=== PATIENT | female | born 1960 | race Caucasian/White ===

== ENCOUNTER 2020-02-06 00:07 | Outpatient (CLI) | payer OTHER, SELFPAY ==
[2020-02-06 18:38] LABS: SARS-CoV-2 RNA PCR Negative
== END 2020-02-06 00:08 | disposition home or self-care (01) ==
LOC: ANHCOVIDDT 00:07
PROVIDERS: PCP Family Medicine; Visit Provider Internal Medicine Gastroenterology
DX: Z01.812 Encounter for preprocedural laboratory examination (principal); Z20.828 Contact with and (suspected) exposure to other viral communicable diseases
CPT/HCPCS: 87635; C9803; U0003

== ENCOUNTER 2020-02-08 01:19 | Day surgery (SDC) | payer OTHER, SELFPAY ==
[2020-01-31 15:12] VITALS: BMI 41.6
[2020-02-08 06:20] VITALS: BP 131/78; PULSE 69; RESP 18; TEMP 36.6; O2SAT 100
[2020-02-08] MEDS: LACTATED RINGERS 1,000 ML 150 ML IV CONT (06:38)
--- NOTE | 2020-02-08 07:11 | WPDANESEPPF ---
Anes - Initial Pre Proc Eval Procedure: Operation Date: 02/08/20 07:30 Proposed Procedures p Screening Colonoscopy - Wagner Schultz MD Date/Time: 02/08/20 07:11 Surgeon: Wagner Schultz MD Pre Op Diagnosis: neoplasm screening Patient Data Age: 59 Gender: F Height: 5 ft 4 in Weight: 112.7 kg Last Vital Signs Temp 97.9 F 02/08/20 06:20 Pulse 69 02/08/20 06:20 Resp 18 02/08/20 06:20 BP 131/78 02/08/20 06:20 Pulse Ox 100 02/08/20 06:20 Allergies Allergy/AdvReac Type Severity Reaction Status Date / Time lisinopril Allergy Unknown Hives Verified 02/08/20 06:39 oxytetracycline Allergy Unknown Unknown Verified 02/08/20 06:39 Penicillins Allergy Unknown Hives Verified 02/08/20 06:39 OXYTETRACYCLINE HCL Allergy Unknown Hives Uncoded 02/08/20 06:39 Home Medications Medication Instructions Recorded Confirmed Type dextroamphetamine-amphetamine 20 20 mg PO BID 11/22/19 01/31/20 History mg tablet ocrelizumab 30 mg/mL intravenous 30 mg IVPB [id number] ml 11/22/19 01/31/20 History solution pramipexole 0.25 mg tablet 0.25 mg PO QID 11/22/19 01/31/20 History losartan 50 mg-hydrochlorothiazide 1 tablet PO DAILY #30 tablet 01/21/20 01/31/20 Rx 12.5 mg tablet Patient hx anesthesia problems: none Family hx anesthesia problems: none COUNTS INCLUDE 234 BEDS AT THE [facility] Past Medical History Medical History (Updated 02/08/20 @ 07:10 by Christopher Chong MD) Hypertension Multiple sclerosis Social History Social History Smoking status: Never smoker Alcohol intake: current Alcohol use details: 1-2 drinks per month Living arrangements: alone Spiritual care concerns: No Anes - Eval Final PreProcedure Day of Procedure 02/08/20 07:11 Patient weight: morbidly obese Heart: regular rate and rhythm Lungs: clear to auscultation Airway: Mallampati scale class III Neurological: alert and oriented Last oral intake: >/= 8 hours ASA classification: III Emergent: no Anesthetic plan: proceed Anesthesia type and monitoring: general GIVS and standard monitoring Informed Consent: The patient's anesthetic plan and its attendant risks and benefits were discussed with the patient/family/POA. Questions were solicited and answers provided to the satisfaction of the patient/family/POA.
--- NOTE | 2020-02-08 07:25 | PM.HPGS ---
History of Present Illness History of Present Illness Consent: Risks, benefits, and alternatives have been discussed and questions answered. Patient agrees to proceed with procedure. Chief complaint: neoplasm screening Narrative: Aditi Giron is a 59 year old female Here for colon cancer screening Review of Systems Review of Systems: All systems reviewed & are unremarkable except as noted in HPI and below PMFSH Past Medical History Medical History Hypertension Multiple sclerosis Social History Social History Smoking status: Never smoker Alcohol intake: current Alcohol use details: 1-2 drinks per month Living arrangements: alone Spiritual care concerns: No Meds Home Medications and Allergies Home Medications Medication Instructions Recorded Confirmed Type dextroamphetamine-amphetamine 20 20 mg PO BID 11/22/19 01/31/20 History mg tablet ocrelizumab 30 mg/mL intravenous 30 mg IVPB [id number] ml 11/22/19 01/31/20 History solution pramipexole 0.25 mg tablet 0.25 mg PO QID 11/22/19 01/31/20 History losartan 50 mg-hydrochlorothiazide 1 tablet PO DAILY #30 tablet 01/21/20 01/31/20 Rx 12.5 mg tablet Allergies Allergy/AdvReac Type Severity Reaction Status Date / Time lisinopril Allergy Unknown Hives Verified 02/08/20 06:39 oxytetracycline Allergy Unknown Unknown Verified 02/08/20 06:39 Penicillins Allergy Unknown Hives Verified 02/08/20 06:39 OXYTETRACYCLINE HCL Allergy Unknown Hives Uncoded 02/08/20 06:39 Vital Signs Vital Signs - 24 hr 02/08/20 06:20 Temperature 36.6 C Pulse Rate 69 Respiratory Rate 18 Blood Pressure 131/78 Pulse Oximetry 100 Exam Resp: Auscultation: clear to auscultation bilaterally Cardio: Rate: regular rate Rhythm: regular rhythm GI: GI Palp: Yes Soft to palpation and No Tenderness to palpation present (GI) Assessment and Plan Assessment and plan (1) Colon cancer screening: Code(s): Z12.11 - Encounter for screening for malignant neoplasm of colon Status: Acute Assessment and Plan: Colonoscopy with possible biopsy or polypectomy or cautery or injection of substances.
[2020-02-08] MEDS: SIMETHICONE ORAL SUSPENSION 20 MG/0.3 ML 30 ML BOTTLE 0.6 ML IRRIGATION (07:41)
[2020-02-08 07:50] VITALS: BP 137/101; PULSE 82; RESP 18; O2SAT 100
[2020-02-08 08:00] VITALS: BP 96/60; PULSE 92; RESP 18; O2SAT 100
[2020-02-08 08:10] VITALS: BP 103/70; PULSE 83; RESP 23; O2SAT 100
== END 2020-02-08 08:30 | disposition home or self-care (01) ==
PROVIDERS: PCP Family Medicine; Visit Provider Internal Medicine Gastroenterology
PROC: 0DJD8ZZ Inspection of Lower Intestinal Tract, Via Natural or Artificial Opening Endoscopic (ICD-10-PCS; CPT 45378; principal; 2020-02-08 07:30)
DX: Z12.11 Encounter for screening for malignant neoplasm of colon (principal); I10 Essential (primary) hypertension; G35 Multiple sclerosis; E66.01 Morbid (severe) obesity due to excess calories; Z68.41 Body mass index [BMI] 40.0-44.9, adult
CPT/HCPCS: 45378; J2704; J7120

== ENCOUNTER → 2021-02-05 13:11 | Outpatient (CLI) | payer OTHER, SELFPAY ==
--- NOTE | ~2021-02-05 | MM_ITS ---
EXAMINATION: MM screening [facility] BI w [facility] HISTORY: Screening TECHNIQUE: Craniocaudal and mediolateral oblique 3-D tomosynthesis images were obtained and synthetic 2-D images were generated. CAD analysis was submitted and interpreted. COMPARISON: Comparison to multiple prior studies sequentially, with oldest reviewed study dated 08/09. BREAST PARENCHYMAL COMPOSITION: Breast composed of scattered areas of fibroglandular density. FINDINGS: There is no evidence of suspicious mass, calcification, or architectural distortion to sugg est malignancy in either breast. There has been no suspicious interval change. IMPRESSION: 1. No mammographic evidence of malignancy. 2. Recommend routine screening mammography in one year. BI-RADS Category 1: Negative Reviewed, dictated and finalized at location A.
== END ==
PROVIDERS: PCP Family Medicine; Visit Provider Nurse Practitioner
DX: Z12.31 Encounter for screening mammogram for malignant neoplasm of breast (principal)
CPT/HCPCS: 77063; 77067

== ENCOUNTER → 2021-02-11 08:00 | Outpatient (CLI) | payer OTHER, SELFPAY ==
--- NOTE | ~2021-02-11 | MR_ITS ---
EXAMINATION: MR cervical spine wo/w con DATE: 02/11/2021 10:15 INDICATION: Multiple sclerosis. TECHNIQUE: Magnetic resonance imaging (MRI) of the cervical spine was performed without and with 20 m L MultiHance intravenous contrast. Sequences included sagittal and axial T2-weighted FSE, sagittal T2 -weighted FS FSE, and sagittal and axial T1-weighted FSE. Postcontrast sequences included sagittal an d axial T1-weighted FS FSE. COMPARISON: None FINDINGS: There is 6 degrees levocurvature of cervical spine. Vertebral body heights are normal. Ther e is 2 mm anterolisthesis of C7 on T1. There is mildly decreased disc height at C3-C4. There are appr oximately 5 ill-defined lesions of increased T2-weighted signal intensity in the spinal cord. None of the lesions enhance. The following disc levels are specifically discussed: C2-C3: The disc does not extend beyond the endplate margin. There is no uncovertebral joint osteoarth ritis. There is ankylosis of left facet joint with mild hypertrophy. There is no neural foraminal rosario nosis. There is no central canal stenosis. C3-C4: The disc is bulging. There is mild bilateral uncovertebral joint osteoarthritis. There is olu re right and moderate left facet joint osteoarthritis. There is moderate right and mild left neural f oraminal stenosis. There is mild central canal stenosis. C4-C5: The disc is bulging. There is moderate right and mild left uncovertebral joint osteoarthritis. There is severe left facet joint osteoarthritis. There is ankylosis of right facet joint with severe hypertrophy. There is mild bilateral neural foraminal stenosis. There is no central canal stenosis. C5-C6: The disc does not extend beyond the endplate margin. There is mild bilateral uncovertebral jose nt osteoarthritis. There is severe bilateral facet joint osteoarthritis. There is mild bilateral neur al foraminal stenosis. There is no central canal stenosis. C6-C7: The disc does not extend beyond the endplate margin. There is no uncovertebral joint osteoarth ritis. There is moderate and moderate left facet joint osteoarthritis. There is mild left neural fora tavo stenosis. There is no central canal stenosis. C7-T1: The disc does not extend beyond the endplate margin. There is no uncovertebral joint osteoarth ritis. There is moderate right and severe left facet joint osteoarthritis. There is mild bilateral ne ural foraminal stenosis. There is no central canal stenosis. IMPRESSION: 1. Spinal cord lesions, consistent with multiple sclerosis. 2. Mild cervical spondylosis. Reviewed, dictated and finalized at location A.
--- NOTE | ~2021-02-11 | MR_ITS ---
EXAMINATION: MR brain/brain stem wo/w con DATE: 02/11/2021 10:19 INDICATION: Multiple sclerosis. TECHNIQUE: Magnetic resonance imaging (MRI) of the brain and brainstem was performed without and with 20 mL MultiHance intravenous contrast. Sequences included sagittal and axial T1-weighted FLAIR, axia l T1-weighted FSE, axial diffusion-weighted FS EPI, sagittal T2-weighted FLAIR, axial T2*-weighted GR E, axial T2-weighted FLAIR Propeller, and axial T2-weighted Propeller. Postcontrast sequences include d axial, coronal, and sagittal T1-weighted FSE. Apparent diffusion coefficient (ADC) maps were create d. COMPARISON: None. FINDINGS: There are approximately 15 total lesions of increased T2-weighted signal intensity in the b rain. Of these lesions, approximately 4 are periventricular, 3 are juxtacortical, and 2 are infratent orial. None of the lesions enhance. There is no acute ischemic infarct retrograde hemorrhage. The clint tricles are normal in size. The mastoid air cells are normal. There is mild mucosal thickening in the paranasal sinuses. The orbits are normal. IMPRESSION: 1. Mild white matter disease, likely a combination of multiple sclerosis and chronic small vessel isc hemic disease. Reviewed, dictated and finalized at location A. IMPRESSION: 1. Mild white matter disease, likely a combination of multiple sclerosis and ch ronic small vessel ischemic disease.
--- NOTE | ~2021-02-11 | MR_ITS ---
EXAMINATION: MR thoracic spine wo/w con DATE: 02/11/2021 10:12 INDICATION: Multiple sclerosis. TECHNIQUE: Magnetic resonance imaging (MRI) of the thoracic spine was performed without and with 20 m L MultiHance intravenous contrast. Sequences included sagittal and axial T2-weighted FSE, sagittal ST IR FSE, and sagittal and axial T1-weighted FSE. Postcontrast sequences included sagittal and axial T1 -weighted FS FSE. COMPARISON: None FINDINGS: There is 6 degrees levocurvature of thoracolumbar spine. There are Schmorl's nodes of the i nferior endplates of T6-T9. There is moderately decreased disc height at T6-T7 and T7-T8 and mildly d ecreased disc height at T8-T9 and T9-T10. At T6-T7, there is a right central extrusion with mild cent ral canal stenosis. At T7-T8, there is a left central extrusion with mild central canal stenosis. At T8-T9, there is a left central extrusion with mild central canal stenosis. At T9-T10, there is a righ t central protrusion with mild central canal stenosis. There is multilevel facet joint osteoarthritis , moderate in upper thoracic spine. There is mild left neural foraminal stenosis from T3-T4 through T 5-T6. The thoracic spinal cord signal intensity is normal. IMPRESSION: 1. No evidence of multiple sclerosis involving thoracic spinal cord. 2. Moderate thoracic spondylosis. Reviewed, dictated and finalized at location A.
[2021-02-11 08:38] LABS: Estimated Glomerular Filt Rate > 60
== END ==
PROVIDERS: PCP Family Medicine
DX: G35 Multiple sclerosis (principal); Z79.899 Other long term (current) drug therapy; R93.89 Abnormal findings on diagnostic imaging of other specified body structures; E55.9 Vitamin D deficiency, unspecified; R53.82 Chronic fatigue, unspecified; N31.9 Neuromuscular dysfunction of bladder, unspecified; R25.2 Cramp and spasm; M47.814 Spondylosis without myelopathy or radiculopathy, thoracic region; M47.812 Spondylosis without myelopathy or radiculopathy, cervical region; R90.82 White matter disease, unspecified
CPT/HCPCS: 70553; 72156; 72157; A9577

== ENCOUNTER 2021-06-18 04:24 | Inpatient (IN) | payer OTHER, SELFPAY ==
[2021-06-18] VITALS (15 sets, daily range): BP systolic 91–150; BP diastolic 57–108; PULSE 77–128; RESP 15–20; TEMP 35.6–36.9; O2SAT 97–100; BMI 44.1
--- NOTE | 2021-06-18 | ECHO_ITS ---
Patient Info Name: Aditi Giron Age: 60 years : 1960 Gender: Female Ht: 63 in Wt: 248 lbs BSA: 2.30 m2 HR: 98 bpm BP: 123 / 84 mmHg Heart Rhythm: Sinus Rhythm Exam Date: 06/18/2021 3:07 PM Exam Location: [facility] Patient Status: Outpatient Admit Date: 06/18/2021 Staff Ordering Physician: Mac Carey MD Cardiac Technician: Harsha Rogers, LEXI, RT Attending Provider: Rashad Cornelius MD Referring Physician: Aurelio FOSTER; Exam Type: CA echo dop color flow w con Study Info Indications R00.0 - Tachycardia, unspecified Complete two-dimensional, color flow and Doppler transthoracic echocardiogram is performed with contrast to opacify the left ventricle and to improve the deliniation of the left ventricle endocardial borders. Summary 1. Left ventricular chamber dimension is mildly enlarged. 2. Left ventricular systolic function is severely reduced, estimated at 20-25%. 3. There is no increased left ventricular wall thickness. 4. The left ventricular diastolic function is abnormal. 5. There is mild to moderate mitral valve regurgitation. 6. Frequent PACs and occasional PVC noted. Left Ventricle Left ventricular chamber dimension is mildly enlarged. Left ventricular systolic function is severely reduced, estimated at 20-25%. There is no increased left ventricular wall thickness. The left ventricular diastolic function is abnormal. Right Ventricle Right ventricular chamber dimension is normal. Right ventricular systolic function is normal. Left Atria Left atrial chamber dimension is normal. Right Atria Right atrial chamber dimension is normal. Atrial Septum Intact interatrial septum visualized by color flow imaging. Aortic Valve The aortic valve is trileaflet. There is mild aortic valve sclerosis. There is no aortic valve stenosis. There is trace aortic valve regurgitation. Pulmonic Valve The pulmonic valve is normal. There is no pulmonic valve stenosis. There is trace pulmonic regurgitation. Mitral Valve The mitral valve has normal leaflets. There is no mitral valve stenosis. There is mild to moderate mitral valve regurgitation. Tricuspid Valve The tricuspid valve leaflets are normal. There is no significant tricuspid valve stenosis. There is trace tricuspid valve regurgitation. Other Findings Frequent PACs and occasional PVC noted. Pericardium/Pleural The pericardium appears normal. Inferior Vena Cava Normal inferior vena cava with >50% collapse upon inspiration consistent with elevated right atrial pressure, 10 mmHg. Aorta The aortic root size at the sinus of Valsalva is normal. Left Ventricular Outflow Tract Name Value Normal LVOT 2D LVOT Diameter 1.98 cm LVOT Doppler LVOT Peak Gradient 3 mmHg LVOT Mean Gradient 1 mmHg LVOT VTI 14.68 cm LVOT VTI/AV VTI Ratio 0.70 LVOT Stroke Volume 45.39 ml LVOT CO 3.67 l/min LVOT CI 1.60 L/
--- NOTE | ~2021-06-18 | NM_ITS ---
EXAMINATION: NM yesenia stress w perfusion DATE: 06/18/2021 14:07 INDICATION: Chest pain. TECHNIQUE: Rest images were obtained following intravenous administration of 6.95 mCi Tc99m tetrofosm in (Myoview). The patient was infused intravenously with Lexiscan (regadenoson). Then, 22.3 mCi Tc99m tetrofosmin (Myoview) was administered intravenously, and stress images were obtained. The patient c ould not do prone imaging. Data was reconstructed into short axis and horizontal and vertical long ax is SPECT images. Gated SPECT images were also obtained. COMPARISON: Chest CT 06/18/2021. FINDINGS: There is a small, mild, reversible perfusion defect involving mid anterior segment of left ventricle, consistent with ischemia. There is global hypokinesis. Left ventricular ejection fractio n measures 18%. IMPRESSION: 1. Small area of mild ischemia involving mid anterior segment of left ventricle. Breast attenuation a rtifact decreases sensitivity and specificity. 2. Global hypokinesis with left ventricular ejection fraction measuring 18%. Reviewed, dictated and finalized at location A. NICAL BUYER IMPRESSION: 1. Small area of mild ischemia involving mid anterior segment of left ventricle . Breast attenuation artifact decreases sensitivity and specificity. 2. Global hypokinesis with left ventricular ejection fraction measuring 18%.
--- NOTE | ~2021-06-18 | US_ITS ---
EXAMINATION:US venous doppler LE BI INDICATION:Leg edema TECHNIQUE: Multiple grayscale, color flow and Doppler images of the right and left lower extremity de ep venous systems were obtained and reviewed. COMPARISON:09/05/2009 FINDINGS: The common femoral, superficial femoral and popliteal veins demonstrate normal respiratory variation, augmentation and compressibility. Color flow is also seen within the posterior tibial, pe roneal, greater saphenous and profunda veins. IMPRESSION: 1: No lower extremity deep venous thrombosis. Reviewed, dictated and finalized at location B. UM TANK TENDER
--- NOTE | ~2021-06-18 | XR_ITS ---
XR chest 1V portable 06/19/2021 08:48 Indication: CHF. Procedure: AP portable chest Comparison: No prior studies for comparison. Findings: Cardiomegaly. Mild interstitial edema. No pleural effusion or pneumothorax. No acute osseou s abnormality. Impression: 1: Cardiomegaly with mild interstitial edema. Reviewed, dictated and finalized at location B. TENANCE PAINTER APPRENTICE Impression: 1: Cardiomegaly with mild interstitial edema.
--- NOTE | ~2021-06-18 | CT_ITS ---
EXAMINATION: CTA chest PE protocol DATE: 06/18/2021 05:38 INDICATION: Pleuritic chest pain with tachypnea TECHNIQUE: Computed tomography (CT) pulmonary angiogram of the chest was performed with 100 mL Omnipa que-350 intravenous contrast. Additional 3D reconstructions utilizing coronal maximum intensity proje ction (MIP) were performed. Automated exposure control and iterative reconstruction technique were em ployed. The dose-length product was 870.76 mGy-cm. COMPARISON: None FINDINGS: Excellent contrast opacification of the pulmonary arteries. There is mild streak artifact from dense contrast in the superior vena cava and right atrium. Mild scattered respiratory motion artifact does not significantly limit evaluation. No pulmonary nodules. Crazy paving pattern in the lungs with grou ndglass opacities and smooth septal line thickening consistent with mild pulmonary edema. There are f ew scattered bilateral pulmonary nodules, the largest measuring 5 mm in the right lower lobe and the remainder 4 mm or smaller. There are some additional scattered linear discoid atelectasis in the righ t lower lobe. Diffuse bronchial wall thickening. No pleural effusion or pneumothorax. Mild cardiomega ly. No pericardial effusion. Thoracic aorta is normal in caliber with no dissection. No pathologicall y enlarged abdominal or pelvic lymphadenopathy. Cholecystectomy clips the gallbladder fossa. There ar e few calcifications at the periphery of the liver which could represent sequela of old granulomatous disease, dropped gallstones or heterotopic ossification related to a chronic insult. IMPRESSION: 1. No pulmonary embolism. 2. Congestive heart failure with mild cardiomegaly and diffuse mild pulmonary edema. Reviewed, dictated and finalized at location A. MS ANALYST IMPRESSION: 1. No pulmonary embolism. 2. Congestive heart failure with mild cardiomegaly and diffuse mild pulmonary e joe.
--- NOTE | 2021-06-18 04:30 | ECG_ITS ---
Measurements Intervals Brothers Rate: 122 P: DC: 0 QRS: -5 QRSD: 105 T: 65 QT: 357 QTc: 510 Interpretive Statements ATRIAL FLUTTER/TACHYCARDIA WITH RAPID VENTRICULAR RESPONSE CONSIDER INFERIOR INFARCT, AGE INDETERMINATE BORDERLINE T WAVE ABNORMALITY- LAT/HIGH LAT LEADS BASELINE ARTIFACT- II, III, AVF ABNORMAL ECG Electronically Signed On 06-18-2021 5:52:29 RIP MACHINE OPERATOR by Reese Aguilera D.O.
[2021-06-18] MEDS: SODIUM CHLORIDE 0.9% IV 1,000 ML 999 ML IV CONT (04:57)
--- NOTE | 2021-06-18 04:57 | ED.GENADULT ---
HPI - General Adult General Chief complaint: Abdominal Pain <Chad Roy MD - Last Filed: 06/18/21 19:08> Stated complaint: left neck/shoulder/arm/side pain <Chad Roy MD - Last Filed: 06/18/21 19:08> Time Seen by Provider: 06/18/21 04:28 <Chad Roy MD - Last Filed: 06/18/21 19:08> Source: patient <Chad Roy MD - Last Filed: 06/18/21 19:08> History of Present Illness HPI narrative: Patient presents with left-sided pain. Reports she has pain started in her neck radiates down to her chest into her arm. Reports is worse with deep inspiration otherwise no other clear aggravating or alleviating factors. The pain is sharp, constant. Denies any nausea or vomiting denies any recent fevers denies shortness of breath denies any diarrhea or constipation. Denies any urinary symptoms. Denies any recent hospitalizations or prior history of blood clots. <Chad Roy MD - Last Filed: 06/18/21 19:08> Related Data Home medications: Home Medications Medication Instructions Recorded Confirmed dextroamphetamine-amphetamine 20 20 mg PO BID 11/22/19 06/18/21 mg tablet pramipexole 0.25 mg tablet 0.25 mg PO QID 11/22/19 06/18/21 ofatumumab [Kesimpta Pen] 20 mg SUBCUT MONTHLY 06/18/21 06/18/21 tizanidine 2 mg PO Q12-24H PRN 06/18/21 06/18/21 <Chad Roy MD - Last Filed: 06/18/21 19:08> Allergies/adverse reactions: Allergies Allergy/AdvReac Type Severity Reaction Status Date / Time lisinopril Allergy Unknown Hives Verified 06/18/21 04:31 oxytetracycline Allergy Unknown Hives Verified 06/18/21 08:49 Penicillins Allergy Unknown Hives Verified 06/18/21 04:31 <Chad Roy MD - Last Filed: 06/18/21 19:08> Review of Systems Review of Systems: CONSTITUTIONAL: Denies fever, chills, or sweats. EYES: Denies visual changes, redness, or discharge. ENT: Denies rhinorrhea, congestion, sore throat, or otalgia. CARDIOVASCULAR: Denies palpitations, or edema. RESPIRATORY: Denies cough or dyspnea. GASTROINTESTINAL: Denies abdominal pain, nausea, vomiting, or diarrhea. GENITOURINARY: Denies dysuria or hematuria. SKIN: Denies rash or itching. MUSCULOSKELETAL: Denies back pain, joint pain, or myalgia. NEUROLOGIC: Denies headache, numbness, dizziness, or weakness. PSYCHIATRIC: Denies anxiety or depression. <Chad Roy MD - Last Filed: 06/18/21 19:08> All systems reviewed & are unremarkable except as noted in HPI and below <Chad Roy MD - Last Filed: 06/18/21 19:08> PMFSH Past Medical History Medical History: Medical History Hypertension Multiple sclerosis <Chad Roy MD - Last Filed: 06/18/21 19:08> Surgical History Surgical History: Surgical History Hx of section Hx of cholecystectomy <Chad Roy MD - Last Filed: 06/18/21 19:08> Family History Family History: Family History Mother Hypertension Brain mass Father Hypertension Malignant neoplasm of prostate Dementia Other Heart disease <Chad Roy MD - Last Filed: 06/18/21 19:08> Social History Social History: Social History Social History: Patient lives home alone. She has a cat. Lifelong nonsmoker. No drug use. Rare alcohol use. Full code. Tamsone Barley is POA. Smoking status: Never smoker Alcohol intake: former Alcohol use details: 1-2 drinks per month Substance use: never Spiritual care concerns: No <Chad Roy MD - Last Filed: 06/18/21 19:08> Exam Narrative: GENERAL: Well-appearing, well-nourished, and in no acute distress. HEAD: Normocephalic, atraumatic. EYES: PERRLA and EOMI. ENT: Nares clear, no rhinorrhea or epistaxis. Mucous membranes moist. NECK: Supple. No vinay
[2021-06-18 04:58] LABS: Basophils Absolute Auto 0.1 K/mm3 (0.0-0.1); Basophils Percent Auto 0.6 % (0.2-1.2); Eosinophils Absolute Auto 0.3 K/mm3 (0-0.3); Eosinophils Percent Auto 3.3 % (0-4.4); Hematocrit 46.2 % (37.0-47.0); Hemoglobin 14.9 g/dL (12.0-15.0); Immature Granulocyte Absolute 0.04 K/mm3 (0.00-0.031); Immature Granulocyte Percent A 0.5 % (0-0.5); Lymphocytes Percent Auto 25.9 % (18.3-44.2); Mean Corpuscular HGB Conc 32.3 g/dl (32-36); Mean Corpuscular Hemoglobin 29.1 pg (26-34); Mean Corpuscular Volume 90.2 fl (80-100); Mean Platelet Volume 8.9 fl (7.4-10.4); Monocytes Percent Auto 11.2 % (2.6-8.5); Neutrophils Percent Auto 58.5 % (45.5-73.1); Platelet Count Result 301 k/mm3 (150-375); Red Blood Count 5.12 M/mm3 (4.2-5.4); Red Cell Distribution Width 12.9 % (11.5-14.5); White Blood Count 8.5 K/mm3 (4.5-10.0)
[2021-06-18 05:12] LABS: Prothrombin Time 12.5 Seconds (11.1-14.7)
[2021-06-18 05:13] LABS: Partial Thromboplastin Time 30.7 SECONDS (22.3-36.8)
[2021-06-18 05:17] LABS: Alanine Aminotransferase 25 U/L (4-35); Albumin Level 4.5 g/dL (3.5-5.1); Alkaline Phosphatase 118 U/L (38-126); Anion Gap 9 mmol/L (8-16); Aspartate Amino Transferase 33 U/L (14-36); Bilirubin,Total 0.6 mg/dL (0.2-1.3); Blood Urea Nitrogen 17 mg/dL (7-17); Carbon Dioxide 24 mmol/L (22-30); Chloride 106 mmol/L (98-107); Estimated CRCL calculation 87 ml/min; Estimated Glomerular Filt Rate > 60; Glucose 98 mg/dL (65-110); Lipase 99 U/L (23-300); Potassium 3.5 mmol/L (3.4-5.0); Sodium 139 mmol/L (137-145)
[2021-06-18 05:26] LABS: Add Urine Microscopic? YES; Appearance Urine Clear (Clear); Bacteria Urine Trace /hpf; Bilirubin Urine Negative (Negative); Blood Urine 1+ (Negative); Color Urine Yellow (Yellow); Glucose Urine UA Negative (Negative); Ketones Urine Trace mg/dL (Negative); Leukocyte Esterase Ur Negative LEU/UL (Negative); Mucus Urine Rare /lpf; Nitrate Urine Positive (Negative); Protein Urine Negative (Negative); RBC Urine 0-2 /hpf (0-2); Specific Grav Ur 1.017 (1.001-1.035); Squamous Epithelial Cell Urine Rare /hpf (Few); Urobilinogen Urine Negative mg/dL (<2.0); WBC Urine 0-3 /hpf
[2021-06-18 05:29] LABS: Troponin I 0.034 ng/mL (0.000-0.034)
[2021-06-18] MEDS: MORPHINE SULFATE (*CRX) 4 MG/ML INJ IV PUSH (05:58)
[2021-06-18] MEDS: SODIUM CHLORIDE 0.9% IV 500 ML 999 ML IV CONT (06:08)
--- NOTE | 2021-06-18 06:14 | ECG_ITS ---
Measurements Intervals [place] Rate: 96 P: 46 WI: 196 QRS: -9 QRSD: 101 T: 68 QT: 377 QTc: 478 Interpretive Statements SINUS RHYTHM ATRIAL TRIPLET AND ATRIAL PREMATURE COMPLEX BORDERLINE ST-T WAVE ABNORMALITY- INF/HIGH LAT LEADS ABNORMAL ECG Electronically Signed On 06-18-2021 7:34:39 SHOW GIRL by Reese Aguilera D.O.
[2021-06-18] MEDS: KETOROLAC 15 MG/ML VIAL (*BKC) IV PUSH (06:23)
[2021-06-18 06:47] LABS: SARS-CoV-2 RNA PCR Negative
[2021-06-18 07:16] LABS: NT Pro B Type Natriuretic Pept 2000 pg/mL (5-100)
[2021-06-18 08:17] LABS: Troponin I 0.036 ng/mL (0.000-0.034)
[2021-06-18] MEDS: ASPIRIN 81 MG CHEWABLE TABLET 324 MG PO (08:38)
[2021-06-18] MEDS: FUROSEMIDE INJ 40 MG/4 ML VIAL 20 MG IV PUSH (08:54)
[2021-06-18] MEDS: METOPROLOL TARTRATE 25 MG TABLET PO (08:55)
--- NOTE | 2021-06-18 09:42 | PM.CNCAR ---
Assessment and Plan Additional Plan -atrial tachycardia -chest pain -elevated troponins -slightly elevated brain atretic peptide -advanced multiple sclerosis This 60-year-old female past medical history of advanced multiple sclerosis presents to the hospital with chest pain. No ischemic changes on EKG however noticed to have sinus rhythm with runs of atrial tachycardia. Troponins slightly elevated. Brain atretic peptide is elevated and CT imaging of the thorax suggestive of pulmonary vascular congestion. -check TSH -add metoprolol 25 mg b.i.d. -echocardiogram -she was given 1 dose of Lasix in the emergency room 20 mg and she appears to be euvolemic. -her chest pain worsened on taking deep breath suggestive of pleuritic component. -stress test History of Present Illness History of Present Illness Consult date/time: Date of service 06/18/21 09:42 Requesting physician: Bong Alejo DO Consult reason: chest pain Reason For Visit: chf,multifocal atrial tachycardia,elevated troponi Narrative: This 60-year-old female with past medical history of progressive multiple sclerosis, hypertension who presents to hospital with left neck, left chest pain radiating to the left arm. Relieved by nitro. Not aggravating by moving the left neck. Aggravated though by taking deep breaths. Was noticed to have atrial tachycardia. She denies worsening shortness of breath. She states that her legs are swollen chronically however on examination there is nonpitting edema. She walks slowly with a walker. Denies syncope. She drinks 2 cups of coffee per day. Denies alcohol, no soda. COVID negative, Normal creatinine. Brain atretic peptide 2000, troponin mildly elevated at 0.034, 0.036 EKG reviewed and was myself shows sinus rhythm with runs of atrial tachycardia. CTA of the thorax ruled out pulmonary embolism but shows cardiomegaly and pulmonary edema. Review of Systems Constitutional: Constitutional: Denies chills, Denies fever(s) and Denies poor appetite Eyes: Eyes: Denies eye discharge, Denies loss of vision, Denies eye pain and Denies photophobia ENT: Denies dizziness, Denies epistaxis, Denies nasal congestion and Denies sore throat Cardiovascular: Cardiovascular: Reports chest pain, Denies syncope, Reports pedal edema, Reports leg edema, Denies palpitations, Denies dyspnea, Denies dyspnea on exertion and Denies orthopnea Respiratory: Respiratory: Denies cough, Denies dyspnea, Denies dyspnea on exertion and Denies wheezing Gastrointestinal: Gastrointestinal: Denies abdominal pain, Denies diarrhea, Denies nausea and Denies vomiting Genitourinary: Genitourinary: Denies hematuria, Denies genital lesions and Denies dysuria Musculoskeletal: Musculoskeletal: Denies arthralgias, Denies joint swelling and Denies numbness Integumentary/Breasts: Skin/Breast: Denies pruritus and Denies rash Neurologic: Denies dizziness, Denies syncope, Denies loss of vision, Reports numbness, Reports paresthesias and Reports other (Weakness bilateral lower extremities) Psychiatric: Psychiatric: Denies anxiety and Denies depression Endocrine: Endocrine: Denies cold intolerance, Denies heat intolerance and Denies palpitations Hematologic/Lymphatic: Hematologic/Lymphatic: Denies easy bleeding and Denies easy bruising Allergic/Immunologic: Allergic/Immunologic: Denies urticaria and Denies wheezing PMFSH Past Medical History Medical History Hypertension Multiple sclerosis Surgical History Surgical History Hx of section Hx of cholecystectomy Family History Family History Mother Hypertension Brain mass Father Hypertension Malignant neoplasm of prostate Dementia Other Heart disease Social History Social History Social H
--- NOTE | 2021-06-18 10:49 | PM.IMHP ---
H&P: HPI History of Present Illness Date/Time: PATIENT ADMITTED UNDER OBSERVATION 06/18/21 10:49 Chief Complaint: Chest pain Narrative: 60yo female with MS and HTN was brought in by EMS for chest pain. Patient has MS with chronic numbness, tingling and weakness in her extremities. Her lower extremities are more affected than her upper extremities. She uses a walker and a power chair. Around 3:00 a.m. on the morning of admission, patient walked to the bathroom to void. When she returned to bed, she developed acute onset of left shoulder, upper chest and neck pain. She states the left chest pain was down into her breast area. There was no shortness of breath, diaphoresis, nausea, vomiting, chills or fevers. No palpitations. She felt the chest discomfort was tight . She has never had this before. No recent symptoms of chest pain or dyspnea on exertion. No history of heart failure or heart disease. No history of rhythm abnormalities with the exception about a year ago when she was undergoing an infusion, a nurses noted a gallop on occasion but patient has not followed up for this nor has she had any testing in this regard. Patient denies any headache, vision changes, blurry vision, vision loss, odynophagia, dysphagia, URI symptoms, diarrhea, abdominal pain, anosmia, dysgeusia, dysuria or hematuria. She has not had a influenza vaccine. She is up-to-date on her COVID vaccines including a booster in January. She has not had the Shingles immunization. No nwbg-mod-luopdes medications recently. Two weeks ago she was started on muscle relaxant but otherwise no new medications. No family hx of early heart disease. Because of the chest pain, she contacted EMS. On EMS arrival, blood pressure was 148/98 and pulse was 110. No medications given. Patient was brought to emergency room for evaluation. In the ED, blood pressure was 146/104 with the heart rate to 128. She was given aspirin and Toradol. She also given a dose of morphine. Troponin up slightly to 0.036. BNP 1999. COVID negative. Urinalysis negative except for 1+ blood and positive nitrates. CTA showed no pulmonary embolism but did show CHF with mild cardiomegaly and diffuse mild pulmonary edema. EKG was read as atrial flutter/tachycardia with RVR but on my reading appears more likely MAT. She had nonspecific T-wave changes. Repeat EKG showing sinus rhythm with PACs. She was on IV fluids but these were stopped and she was given a dose of Lasix. Metoprolol once was given as well. Patient was admitted to the IMU for further care. Review of Systems Review of Systems: All systems reviewed & are unremarkable except as noted in HPI and below PMFSH Past Medical History Medical History Hypertension Multiple sclerosis Surgical History Surgical History Hx of section Hx of cholecystectomy Family History Family History Mother Hypertension Brain mass Father Hypertension Malignant neoplasm of prostate Dementia Other Heart disease Social History Social History Social History: Patient lives home alone. She has a cat. Lifelong nonsmoker. No drug use. Rare alcohol use. Full code. Tamsone Barley is POA. Smoking status: Never smoker Alcohol intake: former Alcohol use details: 1-2 drinks per month Substance use: never Spiritual care concerns: No Meds Home Medications and Allergies Home Medications Medication Instructions Recorded Confirmed Type dextroamphetamine-amphetamine 20 20 mg PO BID 11/22/19 06/18/21 History mg tablet pramipexole 0.25 mg tablet 0.25 mg PO QID 11/22/19 06/18/21 History ofatumumab [Kesimpta Pen] 20 mg SUBCUT MONTHLY 06/18/21 06/18/21 History tizanidine 2 mg PO Q12-24H PRN 06/18/21
[2021-06-18 11:58] LABS: Troponin I 0.034 ng/mL (0.000-0.034)
--- NOTE | 2021-06-18 12:30 | EST_ITS ---
Patient Info Name: Aditi Giron Age: 60 years : 1960 Gender: Female Ht: 63 in Wt: 248 lbs BSA: 2.30 m2 HR: 90 bpm BP: 19 / 85 mmHg Heart Rhythm: Sinus Rhythm Exam Date: 06/18/2021 12:20 PM Exam Location: [facility] Stress Patient Status: Inpatient Admit Date: 06/18/2021 Staff Ordering Physician: Mac Carey MD Attending Provider: Rashad Cornelius MD Exercise Technologist: Corry Murphy, CT Nurse: santos britton Exam Type: CA stress yesenia w NM Study Info Indications R07.9 - Chest pain, unspecified Summary 1. Lexiscan EKG portion is negative for ischemia. 2. Atrial tachycardia at baseline with occasional PVCs. 3. Follow-up on SPECT images. Protocol: Lexiscan Stress ECG Details Stage: REST Duration (min): 1 min : 11 sec HR (bpm): 117 SBP (mmHg): 119 DBP (mmHg): 85 Stage: REST Duration (min): 5 min : 29 sec HR (bpm): 120 SBP (mmHg): 119 DBP (mmHg): 85 Stage: STAGE 1 Duration (min): 1 min : 0 sec HR (bpm): 121 SBP (mmHg): 105 DBP (mmHg): 87 Stage: RECOVERY Duration (min): 1 min : 0 sec HR (bpm): 122 SBP (mmHg): 105 DBP (mmHg): 87 Stage: RECOVERY Duration (min): 2 min : 0 sec HR (bpm): 100 SBP (mmHg): 105 DBP (mmHg): 87 Stage: RECOVERY Duration (min): 3 min : 0 sec HR (bpm): 100 SBP (mmHg): 110 DBP (mmHg): 84 Stage: RECOVERY Duration (min): 4 min : 0 sec HR (bpm): 86 SBP (mmHg): 110 DBP (mmHg): 84 Stage: RECOVERY Duration (min): 4 min : 9 sec HR (bpm): 98 SBP (mmHg): 110 DBP (mmHg): 84 Rest HR: 120 bpm Peak HR: 122 bpm Rest Sys BP: 119 mmHg Peak Sys BP: 110 mmHg Max Pred HR: 158 bpm % Max Pred HR: 77 % Target HR: 134 bpm Max RPP: 13,420 bpm*mmHg Total Time: 1 min : 0 sec Rest Francis BP: 85 mmHg Peak Francis BP: 84 mmHg Total Dose: 0.4 mg Resting ECG Atrial tachycardia at heart rate 117 beats per minute, nonspecific ST changes. Stress ECG Did not meet criteria for ischemia. Arrhythmias Atrial tachycardia, occasional PVCs. Report Signatures
--- NOTE | 2021-06-18 13:03 | PCOTNOTE ---
Attempted OT evaluation. Pt off the floor for stress test. RN states might be having another test following stress test.
--- NOTE | 2021-06-18 14:13 | PCPTNOTE ---
PER OT: Attempted PT evaluation. Pt off the floor for stress test. RN states might be having another test following stress test.
--- NOTE | 2021-06-18 14:43 | ADMGEN ---
This patient, Aditi Giron, was admitted to IMU Room 207-01 at 1035. Patient/family oriented to hospital policies and general routines including ID bracelet, bed and alarms, visiting hours, pain management, procedures, bathroom and other care routines, personal items, smoking policy, room service/diet, and visiting hours. Information on how to activate the Rapid Response Team has been discussed. Patient/Family are encouraged to report perceived risks to care and to ask questions if they do not understand what they are told or what they should do.
[2021-06-18] MEDS: PERFLUTREN LIPID MICROSPHERES 1.5 ML VIAL DILUTED TO 10 ML TOTAL VOLUME IV PUSH (15:24)
--- NOTE | 2021-06-18 15:25 | IVDEFINITY ---
Prior to administration of IV Definity the patient was educated on the risks and benefits of the imaging enhancing agent including potential adverse side effects. The patient verbalized understanding. Allergies were verified. No exclusion criteria were identified and at least one of the following inclusion criteria were met: 1) physician request, 2) patient technically difficult to image (per the [place] [employer] guidelines of two or more segments not discernable within the apical view), or 3) questionable left ventricular function. ?
[2021-06-18] MEDS: BETAMETHASONE/CLOTRIMAZOLE CR 15 GM TUBE 1 APPLIC TOPICAL (20:07)
[2021-06-18] MEDS: PRAMIPEXOLE 0.25 MG TABLET PO (21:17)
[2021-06-18] MEDS: TIZANIDINE HCL 2 MG TABLET PO (21:17)
[2021-06-19] VITALS (32 sets, daily range): BP systolic 101–155; BP diastolic 57–95; PULSE 73–113; RESP 16–24; TEMP 35.7–37; O2SAT 97–100
[2021-06-19 04:37] LABS: Basophils Percent Auto 0.3 % (0.2-1.2); Eosinophils Absolute Auto 0.1 K/mm3 (0-0.3); Eosinophils Percent Auto 1.4 % (0-4.4); Hematocrit 39.7 % (37.0-47.0); Hemoglobin 12.6 g/dL (12.0-15.0); Immature Granulocyte Absolute 0.05 K/mm3 (0.00-0.031); Immature Granulocyte Percent A 0.6 % (0-0.5); Lymphocytes Absolute Auto 1.86 K/mm3 (0.9-3.2); Lymphocytes Percent Auto 21.5 % (18.3-44.2); Mean Corpuscular HGB Conc 31.7 g/dl (32-36); Mean Corpuscular Volume 91.3 fl (80-100); Mean Platelet Volume 9.2 fl (7.4-10.4); Monocytes Absolute Auto 1.6 K/mm3 (0.1-0.6); Monocytes Percent Auto 18.5 % (2.6-8.5); Neutrophils Percent Auto 57.7 % (45.5-73.1); Platelet Count Result 271 k/mm3 (150-375); Red Blood Count 4.35 M/mm3 (4.2-5.4); Red Cell Distribution Width 13.2 % (11.5-14.5); White Blood Count 8.7 K/mm3 (4.5-10.0)
[2021-06-19 04:53] LABS: Anion Gap 3 mmol/L (8-16); Blood Urea Nitrogen 17 mg/dL (7-17); Calcium 8.9 mg/dL (8.4-10.2); Carbon Dioxide 27 mmol/L (22-30); Chloride 107 mmol/L (98-107); Cholesterol 160 mg/dL (0-200); Estimated CRCL calculation 77 ml/min; Estimated Glomerular Filt Rate > 60; Glucose 100 mg/dL (65-110); HDL Direct 71 mg/dL; Potassium 4.2 mmol/L (3.4-5.0); Sodium 137 mmol/L (137-145); Triglycerides 62 mg/dL (<150)
[2021-06-19 05:04] LABS: LDL Cholesterol Direct 55 mg/dL
[2021-06-19] MEDS: TIZANIDINE HCL 2 MG TABLET PO (08:14)
[2021-06-19] MEDS: PRAMIPEXOLE 0.25 MG TABLET PO ×4 (08:15→20:26)
[2021-06-19] MEDS: BETAMETHASONE/CLOTRIMAZOLE CR 15 GM TUBE 1 APPLIC TOPICAL ×2 (08:16→20:06)
[2021-06-19] MEDS: ASPIRIN 81 MG CHEWABLE TABLET PO (08:17)
--- NOTE | 2021-06-19 08:51 | PCPTNOTE ---
Attempted PT evaluation, patient has had doctors in room and is doing multiple different types of testing this morning. Will continue to follow
[2021-06-19] MEDS: carvediloL 3.125 MG TABLET PO ×2 (08:58→20:26)
--- NOTE | 2021-06-19 10:15 | WPDMODSED ---
Moderate Sedation Note-Pt Data Patient Data Diagnosis: intermittent chest pain left ventricular systolic dysfunction Present Complaint: intermittent chest pain Procedure to be performed/Plan: left heart catheterization Allergies Allergy/AdvReac Type Severity Reaction Status Date / Time lisinopril Allergy Unknown Hives Verified 06/18/21 04:31 oxytetracycline Allergy Unknown Hives Verified 06/18/21 08:49 Penicillins Allergy Unknown Hives Verified 06/18/21 04:31 Home Medications Medication Instructions Recorded Confirmed Type dextroamphetamine-amphetamine 20 20 mg PO BID 11/22/19 06/18/21 History mg tablet pramipexole 0.25 mg tablet 0.25 mg PO QID 11/22/19 06/18/21 History ofatumumab [Kesimpta Pen] 20 mg SUBCUT MONTHLY 06/18/21 06/18/21 History tizanidine 2 mg PO Q12-24H PRN 06/18/21 06/18/21 History Current Medications: Active Medications Aspirin (Aspirin 81 Mg Chewable Tablet) 81 mg PO DAILY@0800 [facility] Last Admin: 06/19/21 08:17 Dose: 81 mg Documented by: Carvedilol (Carvedilol 3.125 Mg Tablet) 3.125 mg PO Q12HR [facility] Last Admin: 06/19/21 08:58 Dose: 3.125 mg Documented by: Clotrimazole (Betamethasone/Clotrimazole Cr 15 Gm Tube) 1 applic TOPICAL Q12HR [facility] Last Admin: 06/19/21 08:16 Dose: 1 applic Documented by: Enoxaparin Sodium (Enoxaparin 40 Mg/0.4 Ml Syringe) 40 mg SUB-Q DAILY [facility] Last Admin: 06/19/21 08:57 Dose: Not Given Documented by: Miscellaneous Information (Adderall Is Nonformulary - Can Patient Bring From Home?) 0 each XX CLARIFY [facility] Stop: 07/18/21 00:00 Last Admin: 06/18/21 17:42 Dose: 1 each Documented by: Non-Formulary Medication (Dextroamphetamine-Amphetamine [Adderall]) 20 mg PO BID [facility] Stop: 07/19/21 08:59 Pramipexole Dihydrochloride (Pramipexole 0.25 Mg Tablet) 0.25 mg PO QID [facility] Last Admin: 06/19/21 08:15 Dose: 0.25 mg Documented by: Tizanidine HCl (Tizanidine Hcl 2 Mg Tablet) 2 mg PO Q12H PRN PRN Reason: Muscle Spasm Last Admin: 06/19/21 08:14 Dose: 2 mg Documented by: Sedation/Anesthesia: No previous sedation/anesthesia problems (including family history). [facility] Past Medical History Medical History Hypertension Multiple sclerosis Surgical History Surgical History Hx of section Hx of cholecystectomy Family History Family History Mother Hypertension Brain mass Father Hypertension Malignant neoplasm of prostate Dementia Other Heart disease Social History Social History Social History: Patient lives home alone. She has a cat. Lifelong nonsmoker. No drug use. Rare alcohol use. Full code. Tamsone Barley is POA. Smoking status: Never smoker Alcohol intake: former Alcohol use details: 1-2 drinks per month Substance use: never Spiritual care concerns: No Mod Sed Physical Exam Physical Exam Pre Procedural Exam: Normal: Throat, Airway, Lungs, Heart Size, Heart Rate, Heart Rhythm, Neuro Exam and Extremities and Variation: Appearance ( morbidly obese white female) Hours since solid foods: 12 Hours since liquid intake: 12 Mallampati Classification: class II Internal Medicine - PN: Obj Da Vital Signs Vital Signs: Vital Signs - 24 hr 06/18/21 12:00 06/18/21 14:39 06/18/21 16:00 Temperature 36.8 C 36.8 C Pulse Rate 87 108 H 86 Respiratory Rate 15 16 Blood Pressure 115/77 91/65 L Pulse Oximetry 99 98 06/18/21 18:00 06/18/21 20:00 06/18/21 20:22 Temperature 35.6 C L 36.9 C Pulse Rate 86 89 Respiratory Rate 20 Blood Pressure 102/66 Pulse Oximetry 98 06/18/21 22:00 06/18/21 23:55 06/19/21 00:00 Temperature 36.6 C Pulse Rate 79 98 79 Respiratory Rate 16 Blood Pressure 94/57 L Pulse Oximetry 98 06/19/21 02:00 06/19/21 03:54 06/19/21 04:00 Temperature
--- NOTE | 2021-06-19 10:39 | WPDCARDPROC ---
Cardiac Cath Procedure Note Date of procedure:: 06/19/21 Performing physician:: Barron Velazquez MD Indication:: newly diagnosed left ventricular systolic dysfunction Brief clinical history:: this is a 60-year-old woman without previous cardiac history. Is a morbidly obese lady who presented with chest discomfort that is atypical of angina. Echocardiogram unfortunately has showed evidence of significant left ventricular systolic dysfunction prompting recommendation for angiography. Procedure Procedure performed:: Left ventriculogram coronary angiogram Sedation/Medication given:: fentanyl 50 mg Versed 2 mg case start time 10:13 a.m. case end time 10:35 a.m. Access site:: right femoral artery Estimated blood loss:: 20 cc Procedure note:: patient was brought to the cardiac catheterization lab in the postabsorptive state where the right femoral triangle was prepared and draped in the normal fashion. Anesthesia was provided with 1% lidocaine infiltrated locally. Using the modified Seldinger technique a 5 Swedish sheath was placed into the right femoral artery after this left heart catheterization took place. I used a 5 Swedish angled pigtail catheter to measure hemodynamics and to inject LV g in the 30 degree BHAGAT projection. After this standard FL4 catheter was used to engage and inject the left coronary artery and then a JR4 catheter to engage and inject the right coronary artery. An angiogram was done of the femoral artery through the sheath after which I elected to have the sheath removed removed with direct manual compression. Procedure was well tolerated and the uncomplicated. There was no evidence of a groin hematoma upon leaving the center medical and lab director. Findings:: Hemodynamics: Central aortic pressure was 96 over 56 left ventricle 96 over 5 end-diastolic pressure 18 there is no gradient on pullback across the aortic valve. Left ventricle: The left ventricle is moderately dilated. There is global systolic dysfunction with hypocontractility in all segments. The ejection fraction and visual estimate to be in the vicinity of 25%. The left main coronary artery is large caliber and widely patent the left anterior descending is a moderate caliber artery extending down to around the apex. The LAD and its branches are smooth and angiographically unremarkable. The circumflex is a medium caliber vessel giving rise to the marginal branches and posterior branch as well. The circumflex is smooth and angiographically free of disease. The right coronary artery is large in caliber and dominant to the posterior circulation the RCA is smooth and angiographically normal in appearance Conclusion:: 1. right coronary dominant circulation with no coronary artery disease. 2. Left ventricular dilation severe global systolic dysfunction. Clearly a nonischemic cardiomyopathy Barron Velazquez MD FACC
--- NOTE | 2021-06-19 13:12 | PM.IMPN ---
Progress Note: A&P Assessment and Plan (1) Chest pain: Qualifiers: Chest pain type: unspecified Qualified Code(s): R07.9 - Chest pain, unspecified Code(s): R07.9 - Chest pain, unspecified Status: Acute Assessment and Plan: Patient developed acute onset chest pain radiating to the neck and shoulder after walking back from the bathroom. Troponin essentially negative. EKG showing nonspecific findings with exception of the MAT. CTA was negative for PE. Echocardiogram shows LV systolic function is severely reduced with EF of 20-25% and abnormal diastolic function and mild to moderate MR. LHC showing no CAD but with severe global systolic dysfunction c/w NICM. Suspect chest pain related to demand ischemia. (2) CHF (congestive heart failure): Code(s): I50.9 - Heart failure, unspecified Status: Acute Assessment and Plan: CTA showing evidence congestive heart failure. BNP 2000. Lasix started but BP became soft so this was stopped. Echo and LHC as mentioned above. Cardiology following. Coreg added this morning. Aldactone and Cozaar started. She does have lisinopril allergy causing hives. QRS normal. He did recommend LifeVest at discharge. (3) NICM (nonischemic cardiomyopathy): Code(s): I42.8 - Other cardiomyopathies Status: Acute Assessment and Plan: Echo showing EF 20-25%. LHC showing right coronary dominant circulation with no CAD but with LV dilation/severe global systolic dysfunction c/w a nonischemic cardiomyopathy. Etiology unclear. Viral? Unlikely related to her mediations. Infiltrative? Medical management as above (4) Atrial tachycardia, multifocal: Code(s): I47.1 - Supraventricular tachycardia Status: Acute Assessment and Plan: EKG read as atrial fibrillation/tachycardia. On my review, this appears to be more likely MAT. TSH normal. Echo as mentioned above.Continue Coreg. Cardiology consult. (5) Elevated troponin: Code(s): R77.8 - Other specified abnormalities of plasma proteins Status: Acute Assessment and Plan: Mildly elevated troponin noted possibly related to the tachycardia. EKG showing nonspecific changes. As above. (6) Hypertension: Code(s): I10 - Essential (primary) hypertension Status: Inactive Assessment and Plan: Patient has a history of hypertension but is diet controlled. She states she was heavier in the past but has lost weight and has come off medications. She is allergic to lisinopril. Will continue Coreg, Cozaar. (7) Multiple sclerosis: Code(s): G35 - Multiple sclerosis Status: Inactive Assessment and Plan: Patient had relapsing remitting MS but now it is become secondarily progressive. She is requiring a walker and a power chair. She uses the amphetamine for fatigue. She also uses the Mirapex for muscle spasms. She is on infusions with Kesimpta as well. Continue PT/OT (8) Morbid obesity: Code(s): E66.01 - Morbid (severe) obesity due to excess calories Status: Acute Assessment and Plan: BMI 44. Contributes to her other medicatl problems. Encourage healthy lifestyle. (9) DVT prophylaxis: Code(s): Z29.9 - Encounter for prophylactic measures, unspecified Status: Acute Assessment and Plan: Lovenox Subjective Date/time seen: 06/19/21 13:12 Interval history: 60yo female with MS and HTN was brought in by EMS for chest pain. Patient feels well. She did have some mild pleuritic left upper chest pain earlier today but that has resolved. No shortness of breath. No nausea or vomiting. Exam Narrative: AF 97.7 124/72 73 16 100% ra Gen - NARD lying flat in the catheter builder Chest -Clear anteriorly and in the flanks. nml RR CV - RRR S1/S2 with occasional extra beat Abd - soft, obese, NT, +BS Ext - right groin sheath in place,. 2+ DP bilaterally Psych - normal mood and affect Skin - warm
[2021-06-19] MEDS: SODIUM CHLORIDE 0.9% IV 1,000 ML 125 ML IV CONT (14:04)
[2021-06-19] MEDS: SPIRONOLACTONE 25 MG TABLET PO (14:05)
--- NOTE | 2021-06-19 14:55 | PCCCNOTE ---
On 06/19/21, the student, Chaparrita Bowser, provided care and completed [facility] documentation on this patient. I have reviewed the student's documentation and agree with the findings.
--- NOTE | 2021-06-19 16:01 | PHAR ---
PT' HOME MED (Dextroamphetamine-Amphetamine [Adderall] 20 mg tablet) VERIFIED BY PHARMACY
[2021-06-19] MEDS: ACETAMINOPHEN 325 MG TABLET 650 MG PO (17:43)
[2021-06-19] MEDS: SACUBITRIL/VALSARTAN 24-26 MG TABLET 1 TAB PO (20:26)
[2021-06-20] VITALS (22 sets, daily range): BP systolic 77–140; BP diastolic 58–85; PULSE 70–117; RESP 16–22; TEMP 35.9–37.3; O2SAT 96–100
[2021-06-20] MEDS: PRAMIPEXOLE 0.25 MG TABLET PO ×4 (06:19→20:22)
[2021-06-20] MEDS: SPIRONOLACTONE 25 MG TABLET PO (08:53)
[2021-06-20] MEDS: SACUBITRIL/VALSARTAN 24-26 MG TABLET 1 TAB PO (08:54)
[2021-06-20] MEDS: ENOXAPARIN 40 MG/0.4 ML SYRINGE SUB-Q (08:54)
[2021-06-20] MEDS: BETAMETHASONE/CLOTRIMAZOLE CR 15 GM TUBE 1 APPLIC TOPICAL ×2 (08:55→20:23)
[2021-06-20] MEDS: carvediloL 3.125 MG TABLET PO ×2 (08:55→20:22)
--- NOTE | 2021-06-20 11:10 | PM.PNCARD ---
Progress Note: A&P Additional Plan 60-year-old lady with: Dilated nonischemic cardiomyopathy. Will reduce this dose of Entresto to 12/13 mg given hypotension that occurred this morning. She is not on a diuretic at this time. Will request life vest consultation because of low ejection fraction. Barron Velazquez MD [facility] Subjective Date/time seen: Date of service: 06/20/21 11:10 Interval history: Follow-up visit in this 60-year-old lady with: Newly diagnosed nonischemic cardiomyopathy. Patient presented with chest pain symptoms that are probably unrelated to this since she was found in the labor relations specialist to have no evidence of coronary disease. This morning the patient is supine in bed as I enter the room to see her and in no distress and feels well. Earlier this morning shortly after receiving her a.m. meds she became symptomaticly hypotensive with systolic blood pressures in the 70s and had to be placed in bed. Exam Const: General: comfortable and no acute distress Other: Morbidly obese lady comfortable cooperative no distress HENMT: Mouth: Yes moist mucous membranes Eyes: Sclera: sclerae normal Neck: Neck: supple Other: Very difficult to assess JVD given her obesity Resp: Effort & Inspection: normal respiratory effort Auscultation: clear to auscultation bilaterally Cardio: Rate: regular rate Rhythm: regular rhythm GI: GI Palp: Yes Soft to palpation Auscultation: normal bowel sounds Skin: General skin exam: normal color Neuro: Cognition (Neuro): normal cognition Extrem: General: normal to inspection Objective Data Vital Signs Vital Signs: Vital Signs - 24 hr 06/19/21 11:15 06/19/21 11:30 06/19/21 11:45 Temperature 36.4 C Pulse Rate 73 94 95 Respiratory Rate 16 18 18 Blood Pressure 116/67 112/95 H 116/91 H Pulse Oximetry 100 100 100 06/19/21 11:50 06/19/21 12:00 06/19/21 12:10 Temperature Pulse Rate 99 112 H 94 Respiratory Rate 19 20 20 Blood Pressure 133/89 152/86 H 115/84 Pulse Oximetry 100 100 100 06/19/21 12:20 06/19/21 12:30 06/19/21 12:45 Temperature Pulse Rate 106 H 96 97 Respiratory Rate 20 18 18 Blood Pressure 116/84 119/88 133/83 Pulse Oximetry 100 100 100 06/19/21 13:00 06/19/21 13:15 06/19/21 13:45 Temperature 36.4 C Pulse Rate 86 96 107 H Respiratory Rate 16 16 18 Blood Pressure 132/80 117/85 155/83 H Pulse Oximetry 98 98 97 06/19/21 14:00 06/19/21 14:15 06/19/21 15:15 Temperature 36.0 C L Pulse Rate 100 113 H 94 Respiratory Rate 18 16 Blood Pressure 127/73 131/68 Pulse Oximetry 98 97 06/19/21 16:00 06/19/21 16:15 06/19/21 17:15 Temperature Pulse Rate 113 H 94 82 Respiratory Rate 16 18 Blood Pressure 127/67 126/75 Pulse Oximetry 98 98 06/19/21 20:00 06/19/21 20:03 06/19/21 20:26 Temperature 35.7 C L Pulse Rate 97 92 92 Respiratory Rate 20 Blood Pressure 107/69 Pulse Oximetry 99 06/19/21 21:00 06/19/21 22:00 06/20/21 00:00 Temperature 35.7 C L Pulse Rate 92 81 89 Respiratory Rate 20 Blood Pressure 107/69 Pulse Oximetry 99 06/20/21 00:04 06/20/21 01:22 06/20/21 02:00 Temperature 35.9 C L Pulse Rate 95 82 Respiratory Rate 20 Blood Pressure 101/66 Pulse Oximetry 97 96 06/20/21 04:00 06/20/21 05:11 06/20/21 06:00 Temperature 35.9 C L Pulse Rate 73 103 H 100 Respiratory Rate 18 Blood Pressure 122/66 Pulse Oximetry 98 06/20/21 08:00 06/20/21 08:55 06/20/21 10:00 Temperature 36.3 C L Pulse Rate 82 87 97 Respiratory Rate 16 Blood Pressure 114/69 Pulse Oximetry 96 06/20/21 10:10 06/20/21 10:15 06/20/21 10:46 Temperature Pulse Rate Respiratory Rate Blood Pressure 77/58 L 111/85 108/62 Pulse Oximetry Intake/Output Intake/Output: Intake & Output 06/17/21 06/18/21 06/19/21 06/20/21 23:59 23:59 23:59 23:59 Intake Total 1740 950 370 Output Total 700 250 Balance 1740 250 120 Meds/Results Medications: Active Medications
--- NOTE | 2021-06-20 15:51 | PM.IMPN ---
Progress Note: A&P Assessment and Plan (1) Chest pain: Qualifiers: Chest pain type: unspecified Qualified Code(s): R07.9 - Chest pain, unspecified Code(s): R07.9 - Chest pain, unspecified Status: Acute Assessment and Plan: Patient developed acute onset chest pain radiating to the neck and shoulder after walking back from the bathroom. Troponin essentially negative. EKG showing nonspecific findings with exception of the MAT. CTA was negative for PE. Echocardiogram shows LV systolic function is severely reduced with EF of 20-25% and abnormal diastolic function and mild to moderate MR. LHC showing no CAD but with severe global systolic dysfunction c/w NICM. Pt started on Coreg and Entresto by cardiology. (2) CHF (congestive heart failure): Code(s): I50.9 - Heart failure, unspecified Status: Acute Assessment and Plan: CTA showing evidence congestive heart failure. BNP 1999. Echo and LHC as mentioned above. Cardiology following. Coreg added this morning. Aldactone and Cozaar started. 06/20/2021 Pt was on lisinopril several years ago stopped because of hive reaction. No washout period required. (3) NICM (nonischemic cardiomyopathy): Code(s): I42.8 - Other cardiomyopathies Status: Acute Assessment and Plan: Echo showing EF 20-25%. LHC showing right coronary dominant circulation with no CAD but with LV dilation/severe global systolic dysfunction c/w a nonischemic cardiomyopathy. Etiology unclear. Viral? Unlikely related to her mediations. Medical management as above. 06/20/2021 Entresto adjusted today.due to low bps. Continue to watch bps. TSH is nl at 3.490. (4) Atrial tachycardia, multifocal: Code(s): I47.1 - Supraventricular tachycardia Status: Acute Assessment and Plan: EKG read as atrial fibrillation/tachycardia. (5) Elevated troponin: Code(s): R77.8 - Other specified abnormalities of plasma proteins Status: Acute Assessment and Plan: Mildly elevated troponin noted possibly related to the tachycardia. EKG showing nonspecific changes. As above. (6) Hypertension: Code(s): I10 - Essential (primary) hypertension Status: Inactive Assessment and Plan: Patient has a history of hypertension but is diet controlled. She states she was heavier in the past but has lost weight and has come off medications. She is allergic to lisinopril. Will continue Coreg, Cozaar. (7) Multiple sclerosis: Code(s): G35 - Multiple sclerosis Status: Inactive Assessment and Plan: Patient had relapsing remitting MS but now it is become secondarily progressive. She is requiring a walker and a power chair. She uses the amphetamine for fatigue. She also uses the Mirapex for muscle spasms. She is on infusions with Kesimpta as well. Continue PT/OT (8) Morbid obesity: Code(s): E66.01 - Morbid (severe) obesity due to excess calories Status: Acute Assessment and Plan: BMI 44. Contributes to her other medicatl problems. Encourage healthy lifestyle. (9) DVT prophylaxis: Code(s): Z29.9 - Encounter for prophylactic measures, unspecified Status: Acute Assessment and Plan: Lovenox Subjective Date/time seen: 06/20/21 15:51 Interval history: 60yo female with MS and HTN was brought in by EMS for chest pain. Pt is sp heart catheterization. Pt found to have non ischemic cardiomyopathy unfortunately pts BP are low today, cardiology aware and are reducing the dose of Entresto. Cardiology, myself discussed pts condition with daughter over the phone. Daughter is very concerned with her new diagnosis of NICM. Pt appears asymptomatic still feels weak on her legs secondary to MS Review of Systems Review of Systems: All systems reviewed & are unremarkable except as noted in HPI and below Exam Narrative: Gen - Vital Signs Te
[2021-06-20] MEDS: SACUBITRIL/VALSARTAN 12-13 MG TABLET 1 TAB PO (20:22)
[2021-06-21] VITALS (8 sets, daily range): BP systolic 120–129; BP diastolic 62–83; PULSE 67–116; RESP 16–22; TEMP 36.4–37; O2SAT 97–100
[2021-06-21] MEDS: TIZANIDINE HCL 2 MG TABLET PO (08:20)
[2021-06-21] MEDS: SPIRONOLACTONE 25 MG TABLET PO (08:20)
[2021-06-21] MEDS: ENOXAPARIN 40 MG/0.4 ML SYRINGE SUB-Q (08:20)
[2021-06-21] MEDS: SACUBITRIL/VALSARTAN 12-13 MG TABLET 1 TAB PO (08:21)
[2021-06-21] MEDS: carvediloL 3.125 MG TABLET PO (08:21)
[2021-06-21] MEDS: PRAMIPEXOLE 0.25 MG TABLET PO ×2 (08:22→13:21)
[2021-06-21] MEDS: BETAMETHASONE/CLOTRIMAZOLE CR 15 GM TUBE 1 APPLIC TOPICAL (08:25)
[2021-06-21 08:49] LABS: Anion Gap 5 mmol/L (8-16); Blood Urea Nitrogen 9 mg/dL (7-17); Calcium 9.2 mg/dL (8.4-10.2); Carbon Dioxide 28 mmol/L (22-30); Chloride 108 mmol/L (98-107); Estimated CRCL calculation 88 ml/min; Estimated Glomerular Filt Rate > 60; Glucose 106 mg/dL (65-110); Potassium 4.6 mmol/L (3.4-5.0); Sodium 141 mmol/L (137-145)
--- NOTE | 2021-06-21 10:07 | PM.PNCARD ---
Progress Note: A&P Additional Plan 60-year-old lady with significant nonischemic cardiomyopathy. Currently on medical regimen with very low doses of carvedilol Entresto and spironolactone. Vital signs are stable. I will not advanced any of her medications today because of symptomatic/problematic hypotension yesterday morning. Hopefully the medications can be slowly advanced as an outpatient. I would keep her in the hospital at least until tomorrow morning and also she needs to be supplied with a life vest prior to discharge. Barron Velazquez MD [facility] Subjective Date/time seen: Date of service: 06/21/21 10:07 Interval history: Follow-up visit in this 60-year-old lady with: Newly diagnosed nonischemic cardiomyopathy. Patient presented with chest pain symptoms that are probably unrelated to this since she was found in the laborer brooder farm to have no evidence of coronary disease. 06/21/2021: Patient is looks much more comfortable this morning no further episodes of hypotension with reduction in her Entresto dosage. Discussion with the patient at some length today about the concept of a life vest device because of her low ejection fraction. She is hopeful to be discharged soon as she is feeling well. Exam Const: General: cooperative, comfortable, no acute distress, alert and awake Nutritional Appearance: well nourished Orientation/consciousness: patient oriented x3 Other: Morbidly obese lady comfortable cooperative no distress HENMT: Head: normal to inspection, normocephalic and atraumatic Ears: hearing grossly normal bilaterally General nose exam: Normal external nose present, Normal nares present and no nasal discharge noted Face and sinus: normal facial exam and no erythema Mouth: Yes moist mucous membranes, No drooling and No restricted motion Throat: uvula midline Eyes: General: appearance normal, both eyes and all related structures Alignment and Position: position normal Conjunctivae: conjunctivae normal Sclera: sclerae normal Direct Ophthalmoscopy: No photophobia Neck: Neck: normal visual inspection, supple and no JVD Thyroid: thyroid normal Carotids: no bruits Lymphatic: lymphedema not noted Other: Very difficult to assess JVD given her obesity Chest: Chest palpation & inspection: normal inspection of the chest and no tenderness Resp: Effort & Inspection: normal respiratory effort and no nasal flaring Auscultation: clear to auscultation bilaterally, no crackles, no rales and no wheezes Cardio: Jugular venous distension: no JVD Rate: regular rate and tachycardic Rhythm: regular rhythm and abnormal rhythm Heart sounds: S1 normal heart sound present, S2 normal heart sound present, no gallops, no murmurs and no rubs GI: Inspection: non-distended Auscultation: normal bowel sounds Rectal Exam: deferred : General: No no CVA tenderness Back/Spine/Pelvis: Back: No no CVA tenderness Cervical Spine: cervical ROM normal Skin: General skin exam: normal color and rashes and/or lesions noted Neuro: General: patient oriented x3 Cognition (Neuro): normal cognition Speech: normal speech Motor exam (neuro): no tremors Extrem: General: normal to inspection and pedal edema present Psych: Appearance: grossly normal and well kempt Speech and movement: Normal speech and movement present Affect: normal affect Objective Data Vital Signs Vital Signs: Vital Signs - 24 hr 06/20/21 10:10 06/20/21 10:15 06/20/21 10:46 Temperature Pulse Rate Respiratory Rate Blood Pressure 77/58 L 111/85 108/62 Pulse Oximetry 06/20/21 11:52 06/20/21 12:00 06/20/21 14:00 Temperature 36.1 C L Pulse Rate 70 83 84 Respiratory Rate 18 Blood Pressure 114/69 Pulse Oximetry 99 06/20/21 16:00 06/20/21 18:00 06/20/21 20:00 Temperature 36.1 C L 37.3 C Pulse Rate 83 117 H 89 Respiratory Rate 20 22 H Blood Pressure 126/77 140/77 Pulse Oximetry 98 100 06/20/21 20:22 06/20/21 22:00 06/20/21 23:01 Temperatu
--- NOTE | 2021-06-21 13:15 | PM.DS ---
DS: Admitting Diagnosis Discharge Date 06/21/21 Admitting Diagnosis sob, chf DS: Discharge Diagnosis Discharge Diagnosis (1) Chest pain: Qualifiers: Chest pain type: unspecified Qualified Code(s): R07.9 - Chest pain, unspecified Code(s): R07.9 - Chest pain, unspecified Status: Acute Assessment and Plan: 05/27 nicmp will be given lifevest on dc will need to fu w cardiology (2) CHF (congestive heart failure): Code(s): I50.9 - Heart failure, unspecified Status: Acute Assessment and Plan: nicmp will need to fu w cardiology continue cardiac meds on dc (3) NICM (nonischemic cardiomyopathy): Code(s): I42.8 - Other cardiomyopathies Status: Acute Assessment and Plan: fu cardiology on dc (4) Atrial tachycardia, multifocal: Code(s): I47.1 - Supraventricular tachycardia Status: Acute Assessment and Plan: pac noted (5) Elevated troponin: Code(s): R77.8 - Other specified abnormalities of plasma proteins Status: Acute Assessment and Plan: cardiology on fu (6) Hypertension: Code(s): I10 - Essential (primary) hypertension Status: Inactive Assessment and Plan: monitor w new meds (7) Multiple sclerosis: Code(s): G35 - Multiple sclerosis Status: Inactive Assessment and Plan: hx of (8) Morbid obesity: Code(s): E66.01 - Morbid (severe) obesity due to excess calories Status: Acute (9) DVT prophylaxis: Code(s): Z29.9 - Encounter for prophylactic measures, unspecified Status: Acute DS: Summary Hospital Course Hospital Course: patient admitted for sob and cp easley revealed non ischemic cardiomyopathy with reduced ef cardiology will fu with patient on dc lifevest will be ordered prior to dc dc on cardio protective medications doing well today and able to get around room wo any issues Time Spent with Patient Time attestation: Total time spent providing and/or coordinating discharge services: Exam Narrative: Gen - Vital Signs Temp Pulse Resp BP Pulse Ox 06/20/21 14:00 84 06/20/21 12:00 83 06/20/21 11:52 36.1 C L 70 18 114/69 99 06/20/21 10:46 108/62 06/20/21 10:15 111/85 06/20/21 10:10 77/58 L 02/26/22 10:00 97 06/20/21 08:55 87 06/20/21 08:00 36.3 C L 82 16 114/69 96 06/20/21 06:00 100 06/20/21 05:11 35.9 C L 103 H 18 122/66 98 06/20/21 04:00 73 06/20/21 02:00 82 06/20/21 01:22 96 06/20/21 00:04 35.9 C L 95 20 101/66 97 06/20/21 00:00 89 06/19/21 22:00 81 06/19/21 21:00
== END 2021-06-21 15:47 | disposition home or self-care (01) | DRG 287 ==
LOC: ANHED 08:53 → ANHIMU 09:37
PROVIDERS: Emergency Medicine; Family Medicine; Specialist; Admitting Provider Internal Medicine; Emergency Provider Emergency Medicine; PCP Family Medicine; Visit Provider Chiropractor
PROC: 4A023N7 Measurement of Cardiac Sampling and Pressure, Left Heart, Percutaneous Approach (ICD-10-PCS; CPT 93452; principal; 2021-06-19 12:30)
DX: I42.8 Other cardiomyopathies (principal); I47.1 Supraventricular tachycardia; Z68.41 Body mass index [BMI] 40.0-44.9, adult; I50.20 Unspecified systolic (congestive) heart failure; I11.0 Hypertensive heart disease with heart failure; I42.0 Dilated cardiomyopathy; Z20.822 Contact with and (suspected) exposure to COVID-19; R77.8 Other specified abnormalities of plasma proteins; G35 Multiple sclerosis; E66.01 Morbid (severe) obesity due to excess calories; Z28.21 Immunization not carried out because of patient refusal; Z79.899 Other long term (current) drug therapy; Z88.8 Allergy status to other drugs, medicaments and biological substances
CPT/HCPCS: 36415; 51701; 71045; 71275; 78452; 80048; 80053; 80061; 81001; 83690; 83880; 84443; 84484; 85025; 85610; 85730; 93005; 93017; 93458; 93970; 96361; 96372; 96374; 96375; 97162; 97165; 99285; A9270; A9502; C1887; C1894; C8929; C9803; G0378; J1644; J1650; J1885; J1940; J2250; J2270; J2785; J3010; J7030; J7040; Q9957; Q9967; U0003; U0005

== ENCOUNTER 2021-08-19 14:36 | Outpatient (CLI) | payer OTHER, SELFPAY ==
--- NOTE | ~2021-08-19 | US_ITS ---
EXAMINATION: US venous doppler [facility] DATE: 08/19/2021 15:40 INDICATION: Localized left lower limb swelling TECHNIQUE: Grayscale ultrasound images without and with compression and Doppler ultrasound images of the left lower extremity veins were obtained. COMPARISON: 06/18/2021 FINDINGS: The visualized portions of left common femoral vein, profunda (deep) femoral vein, femoral vein, popl iteal vein, peroneal veins, posterior tibial veins, lesser saphenous vein and greater saphenous vein outflow are patent. IMPRESSION: 1. No deep venous thrombosis in the left lower limb. Reviewed, dictated and finalized at location B.
== END 2021-08-19 14:37 | disposition home or self-care (01) ==
LOC: ANHIMG 14:44
PROVIDERS: PCP Family Medicine
DX: R60.0 Localized edema (principal)
CPT/HCPCS: 93971

== ENCOUNTER 2021-09-28 13:30 | Outpatient (RCR) | payer OTHER, SELFPAY ==
[2021-07-07 15:34] VITALS: PULSE 102
== END 2021-09-28 16:30 | disposition home or self-care (01) ==
LOC: ANHCPREHAB 13:30
PROVIDERS: PCP Family Medicine
DX: I50.89 Other heart failure (principal)
CPT/HCPCS: 93798